=== PATIENT | female | born 1945 | race Caucasian/White ===

== ENCOUNTER 2022-12-05 12:13 | Inpatient (IN) | payer MEDICARE, OTHER ==
[~2022-12-05] VITALS: Ht 162.6 cm; Wt 63.5 kg
--- NOTE | 2022-12-05 13:13 | NUR ---
KIMBERLY (GRAND DAUGHTER) [phone]
--- NOTE | 2022-12-05 13:13 | NUR ---
LUZ, FAMILY CALLED 911 , PT C/O PAIN IN AB, CIRHOSIS OF LIVER NOTED, WAS NOT DRAINED IN DAYS HAD REFUSED TX, BLOATED, IN PAIN, APPEARS TO HAVE A GI BLEED DUE TO BRIGHT RED BLOOD FROM ANUS AT THIS TIME,
[2022-12-05 13:17] LABS: BASOPHILS # (AUTO) 0.2 K/uL (0.0-0.2); BASOPHILS % (AUTO) 1.9 % (0.0-2.0); EOSINOPHILS % (AUTO) 0.4 % (0.0-6.0); HEMATOCRIT 38 % (33-45); HEMOGLOBIN 11.9 g/dL (11.5-14.8); LYMPHOCYTES # (AUTO) 3.4 K/uL (0.8-4.8); LYMPHOCYTES % (AUTO) 29.3 % (20.0-44.0); MEAN CORPUSCULAR HGB CONC 32 g/dl (31.0-36.0); MEAN CORPUSCULAR VOLUME 82 fL (82-100); MONOCYTES # (AUTO) 0.5 K/uL (0.1-1.30); MONOCYTES % (AUTO) 4.2 % (2.0-12.0); NEUTROPHILS # (AUTO) 7.4 K/uL (1.8-8.9); NEUTROPHILS % (AUTO) 64.2 % (43.0-81.0); PLATELET COUNT (AUTO) 375 K/uL (150-450); WHITE BLOOD COUNT (AUTO) 11.5 K/uL (4.3-11.0)
[2022-12-05] MEDS ORDERED: IV NS 0.9% 1,000 ML BAG IV ONE ×2 (13:30→14:30)
[2022-12-05 13:32] LABS: SERUM AMMONIA 36 umol/L (11-32)
[2022-12-05 13:47] LABS: ALANINE AMINOTRANSFERASE 225 U/L (12-78); ALBUMIN 2.6 g/dL (3.4-5.0); ASPARTATE AMINOTRANSFERASE 580 U/L (15-37); BILIRUBIN,DIRECT 12.4 mg/dL (0.0-0.2); BILIRUBIN,TOTAL 15.3 mg/dL (0.2-1.0); CALCIUM, SERUM 9.5 mg/dL (8.5-10.1); CARBON DIOXIDE 19 mmol/L (21-32); CHLORIDE 92 mmol/L (98-107); CREATININE 2.6 mg/dL (0.6-1.3); GLUCOSE 102 mg/dL (74-106); LIPASE 259 U/L (73-393); SODIUM SERUM 127 mmol/L (136-145); TOTAL PROTEIN, SERUM 6.3 g/dL (6.4-8.2)
[2022-12-05 13:50] LABS: POTASSIUM 6.6 mmol/L (3.5-5.1); UREA NITROGEN, BLOOD 147 mg/dL (7-18)
[2022-12-05] MEDS ORDERED: ALBUTEROL FS 2.5 MG/3 ML VIAL.NEB NEB ONE (14:00)
[2022-12-05] MEDS ORDERED: DEXTROSE 50%-WATER 50 ML DISP.SYRIN IV ONE (14:00)
[2022-12-05] MEDS ORDERED: INSULIN REGULAR, HUMAN 100 UNIT/ML 10 ML VIAL IV ONE (14:00)
[2022-12-05] MEDS ORDERED: SODIUM BICARBONATE SYR 50 MEQ/50 ML DISP.SYRIN IV ONE (14:00)
[2022-12-05 14:08] LABS: ALKALINE PHOSPHATASE 2203 U/L (46-116)
[2022-12-05] MEDS ORDERED: SODIUM BICARBONATE SYR 50 MEQ/50 ML DISP.SYRIN ONE (14:13)
[2022-12-05] MEDS ORDERED: DEXTROSE 50%-WATER 50 ML DISP.SYRIN ONE (14:13)
--- NOTE | 2022-12-05 14:16 | NUR ---
PAGEAdeel HERNANDEZ FORMERLY [facility] FOR CONSULT PER DR. ROUSE REQUEST. DAVID ADVISED SHE WOULD COME SEE PT. NO ETA
[2022-12-05] MEDS ORDERED: INSULIN REGULAR, HUMAN 100 UNIT/ML 10 ML VIAL ONE (14:51)
[2022-12-05] MEDS ORDERED: LIDOCAINE 2% 20 ML MDV ONE (14:58)
[2022-12-05] MEDS ORDERED: ONDANSETRON HCL/PF 4 MG/2 ML VIAL IVP PRN (15:00)
[2022-12-05] MEDS ORDERED: MAG HYDROX/AL HYDROX/SIMETH 30 ML UDC PO PRN (15:00)
[2022-12-05] MEDS ORDERED: Z GUARD REMEDY 4 OZ OINT TP PRN (15:00)
[2022-12-05] MEDS ORDERED: ACETAMINOPHEN 325 MG TABLET PO PRN (15:00)
[2022-12-05] MEDS ORDERED: MAGNESIUM HYDROXIDE 30 ML UDC PO PRN (15:00)
[2022-12-05] MEDS ORDERED: MORPHINE SULFATE INJ 2 MG/ML DISP.SYRIN IV PRN (15:00)
[2022-12-05] MEDS ORDERED: IV NS 0.9% 1,000 ML IV PRN (15:00)
--- NOTE | 2022-12-05 15:05 | NUR ---
PT AND FAMILY DECIDED TO DECLINE THE PARACENTISIS AT THIS TIME AND IMPLEMENT COMFORT MEASURES ONLY AT THIS TIME, MD AGREED PROCEDURE CANCELLED AT THIS TIME. WILL CONTINUE WITH COMFORT CARE AND CARRY OUT ANY FURTHER ORDERS.
--- NOTE | 2022-12-05 15:15 | NUR ---
SW was notified of pt. consult, pt. will be admitted medically and SW will follow up at a later time.
--- NOTE | 2022-12-05 15:24 | NUR ---
room 324-2
--- NOTE | 2022-12-05 15:28 | NUR ---
search engine optimization specialist treated and cleansed both sites with NS and gauze, pt stable A&O x 4
--- NOTE | 2022-12-05 16:00 | NUR ---
Admission Note Received patient from ER via gurney. Patient is A/ox 2, Luxembourger speaking, verbal; not clear. Patient has no s/o of SOB, breathing evenly and unlabored. Vitals BP 153/88, WI 99, RR 18, Spo2 97% on room air. External monitor attached, reading SR w/ BBB, HR in the 90s. IV access on LAC G #20 intact and patent. Limited Skin Assessment done patient getting agitated. Refused photos. Patient back clean, dry and intact. Abdominal distension noted, all belonging accounted for. Patient is DNR/DNI, POLST in chart. Code Status ordered. Safety measure in place: bed in lowest position, locked position with SR up x3, call light with reach. Addendum: 12/05/22 at 1929 by MYESHA CASTRO LVN ADD: For comfort measures ONLY
[2022-12-05 17:48] VITALS: BP 153/88
--- NOTE | 2022-12-05 19:27 | NUR ---
Tele CIVIL CAD DESIGNER closing Note Patient remains stable, will endorse to shift commander nurse fro WAYLON.
--- NOTE | 2022-12-05 19:35 | NUR ---
COMMUNITY SERVICE OFFICER COORDINATOR OPENING NOTES RECEIVED PATIENT IN BED AWAKE. WITH FAMILY IN BED SIDE PATIENT IS A/OX1. IV SITE ON LEFT AC G#20 SALINE LOCK. NOTED TO BE PATENT AND INTACT, FLUSHING WELL. PATIENT ON TELE MONITOR WITH READING OF SINUS RHYTHM 96BPM WITH BBB. NO SOB NOTED. PATIENT SLIGHTLY AGITATED AND RESTLESS. SAFETY MEASURE IN PLACED; BED LOCKED AND IN LOWEST POSITION. SIDE RAILS UP X4, HOB ELEVATED, CALL LIGHT AND BEDSIDE TABLE WITHIN PATIENTS REACH.
--- NOTE | 2022-12-05 19:45 | NUR ---
RN NOTE PATIENT IS SAYING SHE IS IN PAIN IN GUYANESE. TRANSLATED BY GRANDDAUGHTER. DR THOMAS PRODUCT OPERATIONS ASSOCIATE MADE AWARE OF. NEW ORDER RECEIVED AND CARRIED OUT.
[2022-12-05 20:00] VITALS: BP 114/61
[2022-12-05] MEDS ORDERED: MORPHINE SULFATE 8 MG/ML VIAL IM/IV PRN (20:30)
[2022-12-05] MEDS: MORPHINE SULFATE INJ 2 MG/ML DISP.SYRIN IM/IV PRN (21:14)
--- NOTE | 2022-12-05 21:14 | NUR ---
RN NOTES MORPHINE IV IS GIVEN ACCORDING TO DR ORDER. WILL REASSESS.
[2022-12-05] MEDS ORDERED: CLONIDINE HCL 0.1 MG TABLET PO PRN (21:30)
--- NOTE | 2022-12-05 21:44 | NUR ---
RN NOTES REASSESSED PAIN OF PATIENT. PAIN MEDICATION MORPHINE IS EFFECTIVE. NO MORE SHOUTING AND GRASPING OF ABDOMINAL AREA NOTED
[2022-12-05] MEDS: LORAZEPAM INJ 2 MG/ML VIAL IV PRN (21:45)
--- NOTE | 2022-12-05 21:45 | NUR ---
RN NOTES PATIENT IS RESTLESS AND AGITATED. CHARGE NURSE HARVINDER MADE AWARE OF. QUALITY PROCESS LEAD DR THOMAS MADE AWARE OF. NEW ORDER RECEIVED AND CARRIED OUT. ATIVAN WAS GIVEN TO THE PATIENT. WILL REASSESS.
--- NOTE | 2022-12-05 22:15 | NUR ---
RN NOTE REASSESSED PATIENT AGITATION AND RESTLESSNESS. ATIVAN IS EFFECTIVE. PATIENT IS SLEEPING AND CALM. EASILY AWAKEN WITH SOFT TOUCH NOTED.
[2022-12-06] VITALS: BP 111/61
[2022-12-06 04:00] VITALS: BP 122/67
--- NOTE | 2022-12-06 06:44 | NUR ---
324-2 LEAD SQL DEVELOPER CLOSING NOTES PATIENT IN BED SLEEPING A/OX1. IV SITE ON LEFT AC G#20 SALINE LOCK. NOTED TO BE PATENT AND INTACT, FLUSHING WELL. IV ACCESS NO SIGNS OF INFECTION. PATIENT ON TELE MONITOR WITH READING OF SINUS RHYTHM 85BPM. NO SOB NOTED, NOT IN DISTRESS NOTED, NO RESTLESSNESS NOTED. COMFORT CARE IS PROVIDED. ALL MEDICATIONS ARE GIVEN ACCORDING TO DOCTORS ORDER. ALL NEEDS ARE MET. MADE SURE PATIENT IS COMFORTABLE, CLEAN AND DRY. HOURLY ROUNDS IS DONE THROUGHOUT THE SHIFT MAKING SURE ALL PATIENT NEEDS ARE MET. SAFETY MEASURE IN PLACED; BED LOCKED AND IN LOWEST POSITION. SIDE RAILS UP X4, HOB ELEVATED, CALL LIGHT AND BEDSIDE TABLE WITHIN PATIENTS REACH. WILL ENDORSE TO NEXT SHIFT NURSE FOR CONTINUITY OF CARE.
--- NOTE | 2022-12-06 07:58 | NUR ---
RN OPENING NOTE PATIENT AWAKE IN BED RESTING, A/O X 1. NO S/S OF PAIN NOTED AT THIS TIME. ON ROOM AIR, BREATHING EVEN UNLABORED, NO DISTRESS OR SHORTNESS OF BREATH NOTED. IV ACCESS LAC #20G, INTACT, PATENT AND FLUSHING WELL. PATIENT HAVE EXTERNAL SUPERVISOR COLOR PASTE MIXING WITH CURRENT READING OF SR AND HR OF 86, NO CARDIAC DISTRESS NOTES. FALL AND SAFETY MEASURES IN PLACE, BED ALARM ON, BED IN LOW AND LOCK POSITION, CALL LIGHT AND TABLE WITHIN EASY REACH, SIDE RAILS UP X2. WILL CONTINUE TO MONITOR.
[2022-12-06 08:00] VITALS: BP 109/58
[2022-12-06] MEDS ORDERED: PANTOPRAZOLE 40 MG VIAL IV SCH (09:00)
[2022-12-06 10:33] LABS: CALCIUM, SERUM 9.1 mg/dL (8.5-10.1); CARBON DIOXIDE 20 mmol/L (21-32); CHLORIDE 95 mmol/L (98-107); CREATININE 2.7 mg/dL (0.6-1.3); GLUCOSE 76 mg/dL (74-106); SODIUM SERUM 130 mmol/L (136-145)
[2022-12-06 10:39] LABS: POTASSIUM 6.4 mmol/L (3.5-5.1); UREA NITROGEN, BLOOD 151 mg/dL (7-18)
[2022-12-06 10:48] LABS: ALANINE AMINOTRANSFERASE 322 U/L (12-78); ALBUMIN 2.5 g/dL (3.4-5.0); ASPARTATE AMINOTRANSFERASE 1010 U/L (15-37); BILIRUBIN,TOTAL 15.3 mg/dL (0.2-1.0); TOTAL PROTEIN, SERUM 6.1 g/dL (6.4-8.2)
[2022-12-06 10:52] LABS: ALKALINE PHOSPHATASE 2474 U/L (46-116)
[2022-12-06] MEDS: MORPHINE SULFATE INJ 2 MG/ML DISP.SYRIN IM/IV PRN ×2 (12:21→19:53)
[2022-12-06 13:00] VITALS: BP 114/52
[2022-12-06] MEDS ORDERED: DEXTROSE 50%-WATER 50 ML DISP.SYRIN IVP ONE (14:30)
[2022-12-06] MEDS ORDERED: SODIUM POLYSTYRENE SULF. PWD 15 GM UDC PO ONE (14:30)
[2022-12-06] MEDS ORDERED: INSULIN REGULAR, HUMAN 100 UNIT/ML 10 ML VIAL IV ONE (14:30)
[2022-12-06] MEDS ORDERED: Calcium Gluconate 1GM/10ML 4.65 MEQ in IV NS 0.9% 100 ML IV ONE (14:30)
[2022-12-06] MEDS ORDERED: CLOB15OI3 TP (14:37)
[2022-12-06] MEDS ORDERED: METO25TA20 PO (14:37)
[2022-12-06] MEDS ORDERED: HYDR28.316 RC (14:37)
[2022-12-06] MEDS ORDERED: LACT10PA5 PO (14:37)
[2022-12-06] MEDS ORDERED: FURO40TA5 PO (14:37)
[2022-12-06] MEDS ORDERED: INSU100I19 SQ (14:37)
[2022-12-06] MEDS ORDERED: LIDO30AD10 TP (14:37)
[2022-12-06] MEDS ORDERED: PANT40TA49 PO (14:37)
[2022-12-06] MEDS ORDERED: CLOP75TA15 PO (14:37)
[2022-12-06] MEDS ORDERED: VALS80TA31 PO (14:37)
[2022-12-06] MEDS ORDERED: GLIP5TAB13 PO (14:37)
[2022-12-06] MEDS ORDERED: OMEG1CAP55 PO (14:37)
[2022-12-06] MEDS ORDERED: NAPR-1192 PO (14:37)
[2022-12-06] MEDS ORDERED: ASPI-1420 PO (14:37)
[2022-12-06] MEDS ORDERED: GABA-532 PO (14:37)
[2022-12-06 16:00] VITALS: BP 109/55
--- NOTE | 2022-12-06 17:34 | NUR ---
RN NOTES FAMILY REQUESTED FOR PT TO HAVE ZOFRAN ORDER PRN. ORDER WAS PLACED PER CHARGE NURSE APPROVAL- ZOFRAN 4 MG IV Q4H.
--- NOTE | 2022-12-06 17:37 | NUR ---
RN NOTES FAMILY REQUESTED FOR DOCTOR TO BE INFORMED THAT INCASE PARACENTESIS IS NEEDED, THEY WOULD LIKE PATIENT TO HAVE PARACENTESIS IF IT IS HELPFUL AND NECESSARY. CHARGE NURSE AWARE, WILL ENDORSE TO NEXT SHIFT.
[2022-12-06] MEDS ORDERED: ONDANSETRON HCL/PF 4 MG/2 ML VIAL IV PRN (18:00)
--- NOTE | 2022-12-06 19:30 | NUR ---
RN OPENING NOTE PATIENT AWAKE IN BED RESTING, A/O X 1. NO S/S OF PAIN NOTED AT THIS TIME. ON ROOM AIR, BREATHING EVEN UNLABORED, NO DISTRESS OR SHORTNESS OF BREATH NOTED. IV ACCESS LAC #20G, INTACT, PATENT AND FLUSHING WELL. PATIENT HAVE EXTERNAL TELEVISION NEWS ANCHOR WITH CURRENT READING OF SR AND HR OF 85, NO CARDIAC DISTRESS NOTES. FALL AND SAFETY MEASURES IN PLACE, BED ALARM ON, BED IN LOW AND LOCK POSITION, CALL LIGHT AND TABLE WITHIN EASY REACH, SIDE RAILS UP X2. ALL NEEDS ATTENDED AND ANTICIPATED. Addendum: 12/06/22 at 2033 by GERRI PIEDRA RN ERROR
[2022-12-06] MEDS: LORAZEPAM INJ 2 MG/ML VIAL IV PRN (19:54)
[2022-12-06 20:00] VITALS: BP 111/54
--- NOTE | 2022-12-06 20:00 | NUR ---
RN OPENING NOTE PATIENT AWAKE IN BED RESTING, A/O X 1. PT NOTED SCREAMING OUT FAMILY AT BEDSIDE PT APPEARD IN PAIN PER FAMILY MORPHINE REQUESTED WHEN RN WAS ABOUT TO PUSH MORPHINE FAMILY STATED " WAIT LET ME CALL MY DAUGHTER" PTS GRANDDAUGHTER WAS PLACED ON SPEAKER AND STATED " CAN YOU EXPLAIN WHAT MORPHINE IS USED FOR IS THERE A DIFFERENT MEDICATION YOU CAN GIVE HER THE LAST NURSE GAVE MORPHINE CAN YOU GIVE THE OTHER ONE". RN ASKED ARE YOU TALKING ABOUT TO THE ATIVAN ? " YES PLEASE GIVE HER THAT ONE INSTEAD PLEASE". MORPHINE DISCARDED IN MED ROOM WITNESSED BY WERNER DUMONT. ON ROOM AIR, BREATHING EVEN UNLABORED, NO DISTRESS OR SHORTNESS OF BREATH NOTED. IV ACCESS LAC #20G, INTACT, PATENT AND FLUSHING WELL. PATIENT HAVE EXTERNAL APPOINTMENT SCHEDULER WITH CURRENT READING OF SR AND HR OF 80S, NO CARDIAC DISTRESS NOTES. FALL AND SAFETY MEASURES IN PLACE, BED ALARM ON, BED IN LOW AND LOCK POSITION, CALL LIGHT AND TABLE WITHIN EASY REACH, SIDE RAILS UP X2. PT FAMILY REQUESTING TO SPEAK TO DOCTOR REGARDING HOSPICE VS PALLIATIVE CARE STATUS PHONE NUMBER OF GRANDDAUGHTER OBTAINED MARK . Addendum: 12/06/22 at 2034 by GERRI PIEDRA RN PER FAMILY REQUEST PT WAS CHANGED AT THIS TIME. NO RECTAL BLEEDING NOTED AT THIS TIME.
--- NOTE | 2022-12-06 20:08 | NUR ---
RN CLOSING NOTE PATIENT AWAKE IN BED RESTING, A/O X 1. NO S/S OF PAIN NOTED AT THIS TIME. ON ROOM AIR, BREATHING EVEN UNLABORED, NO DISTRESS OR SHORTNESS OF BREATH NOTED. IV ACCESS LAC #20G, INTACT, PATENT AND FLUSHING WELL. PATIENT HAVE EXTERNAL HOTEL OR MOTEL RECEPTIONIST WITH CURRENT READING OF SR AND HR OF 85, NO CARDIAC DISTRESS NOTES. FALL AND SAFETY MEASURES IN PLACE, BED ALARM ON, BED IN LOW AND LOCK POSITION, CALL LIGHT AND TABLE WITHIN EASY REACH, SIDE RAILS UP X2. PATIENT WAS TURNED AND REPOSITIONED PER PROTOCOL. SCHEDULED MEDICATIONS GIVEN. ALL NEEDS ATTENDED AND ANTICIPATED. WILL ENDORSE TO CAR LOT ATTENDANT NURSE.
[2022-12-07] VITALS (7 sets, daily range): BP systolic 97–122; BP diastolic 51–58
--- NOTE | 2022-12-07 06:37 | NUR ---
RN CLOSING NOTE PATIENT AWAKE IN BED RESTING, A/O X 1. ON ROOM AIR, ASLEEP BREATHING EVEN UNLABORED, NO DISTRESS OR SHORTNESS OF BREATH NOTED. IV ACCESS LAC #20G, INTACT, PATENT AND FLUSHING WELL. PATIENT HAS EXTERNAL COAL TRIMMER WITH CURRENT READING OF SR AND HR OF 90S, NO CARDIAC DISTRESS NOTES. FALL AND SAFETY MEASURES IN PLACE, BED ALARM ON, BED IN LOW AND LOCK POSITION, CALL LIGHT AND TABLE WITHIN EASY REACH, SIDE RAILS UP X2. KEPT CLEAN AND DRY AT ALL TIMES REPOSITIONED Q2HRS AND PRN FOR COMFORT. NO NOTED RECTAL BLEEDING DURING SHIFT.WILL ENDORSE CARE TO DAY SHIFT NURSE.
--- NOTE | 2022-12-07 07:30 | NUR ---
EXAMINER RATING CLERK OPENING NOTE RECEIVED PATIENT RESTING IN BED. A/OX1. NO COMPLAINTS MADE. NO S/S OF DISTRESS, BREATHING WITHOUT DIFFICULTY ON ROOM AIR. IV ACCESS LAC #20 SL INTACT AND PATENT. ON TELE MONITORING, SR 90s. SKIN INTACT, ON FULL LIQUID DIET. SAFETY MEASURES IN PLACE: BED LOCKED AND AT LOWEST POSITION, SEMI-FOWLERS POSITION, SIDE RAILS UP X2, CALL LIGHT WITHIN REACH. REPOSITIONING EVERY 2 HRS AND PRN COMFORT. WILL CONTINUE TO MONITOR PATIENT.
[2022-12-07] MEDS: MORPHINE SULFATE INJ 2 MG/ML DISP.SYRIN IM/IV PRN (08:09)
--- NOTE | 2022-12-07 09:00 | NUR ---
DRAW FRAME TENDER NOTES PT IN BED, ASLEEP, EASY TO AROUSE, NO SIGN OF PAIN OR DISTRESS, SEEN BY DR. MCBRIDE, PLAN FOR HOSPICE EVAL TODAY.
[2022-12-07 12:10] LABS: CALCIUM, SERUM 9.1 mg/dL (8.5-10.1); CARBON DIOXIDE 19 mmol/L (21-32); CHLORIDE 95 mmol/L (98-107); CREATININE 3.4 mg/dL (0.6-1.3); GLUCOSE 110 mg/dL (74-106); SODIUM SERUM 131 mmol/L (136-145)
[2022-12-07 12:27] LABS: POTASSIUM 6.7 mmol/L (3.5-5.1); UREA NITROGEN, BLOOD 163 mg/dL (7-18)
[2022-12-07] MEDS ORDERED: INSULIN REGULAR, HUMAN 100 UNIT/ML 3 ML VIAL SQ ONE (15:30)
[2022-12-07] MEDS ORDERED: DEXTROSE 50%-WATER 50 ML DISP.SYRIN IVP ONE (15:30)
--- NOTE | 2022-12-07 19:00 | NUR ---
FUR SEWER NOTES PT IN BED, RESTING, NO SIGN OF PAIN OR DISTRESS, RESPIRATIONS NORMAL, FAMILY AT BEDSIDE, SEEN BY DR. MCBRIDE TODAY, ALSO SEEN BY CRYPTOLOGIC SUPERVISOR CARLOS, DISCHARGE PLANNING DISCUSSED WITH FAMILY MEMBERS, PM CARE PROVIDED.
--- NOTE | 2022-12-07 19:32 | NUR ---
MUFFLER MECHANIC NOTES PT IN BED, ASLEEP, NO SIGN OF PAIN OR DISTRESS NO USE OF ACCESSORY MUSCLES NO GRIMACE NOTED IN NO PAIN AT THIS TIME. PT FAMILY AT BEDSIDE.
[2022-12-07] MEDS: LORAZEPAM INJ 2 MG/ML VIAL IV PRN (22:56)
--- NOTE | 2022-12-07 22:56 | NUR ---
RN NOTE PT NOTED WITH AGITATION PRN ATIVAN GIVEN.
[2022-12-08] VITALS (8 sets, daily range): BP systolic 98–116; BP diastolic 46–59
--- NOTE | 2022-12-08 06:39 | NUR ---
RN CLOSING NOTE PATIENT AWAKE IN BED RESTING, A/O X 0. ON ROOM AIR, ASLEEP BREATHING EVEN UNLABORED, NO DISTRESS OR SHORTNESS OF BREATH NOTED. IV ACCESS LAC #20G, INTACT, PATENT AND FLUSHING WELL. PATIENT HAS EXTERNAL STRUCTURAL STEEL WORKER WITH CURRENT READING OF SR AND HR OF 80S, NO CARDIAC DISTRESS NOTES. FALL AND SAFETY MEASURES IN PLACE, BED ALARM ON, BED IN LOW AND LOCK POSITION, CALL LIGHT AND TABLE WITHIN EASY REACH, SIDE RAILS UP X2. KEPT CLEAN AND DRY AT ALL TIMES REPOSITIONED Q2HRS AND PRN FOR COMFORT. .WILL ENDORSE CARE TO DAY SHIFT NURSE.
--- NOTE | 2022-12-08 07:07 | NUR ---
BINDERY MACHINE TENDER OPENING NOTES RECEIVED PATIENT RESTING IN BED, A/Ox0, RESPONDS TO VERBAL AND TACTILE STIMULI. ON ROOM AIR, NO S/S OF RESPIRATORY DISTRESS. ON TELE MONITORING SHOWING SINUS RHYTHM HR 84. NO S/S OF CHEST PAIN OR DISCOMFORT. IV ACCESS L AC #20 S/L. INTACT AND PATENT. PATIENT INCONTINENT. BED BOUND. SKIN ISSUES: SACRAL REDNESS. NO S/S OF PAIN OR DISCOMFORT. ON COMFORT MEASURES, PATIENT RESTING WELL. SAFETY MEASURES IN PLACE: BED LOCKED AND IN LOWEST POSITION, HOB ELEVATED, CALL LIGHT WITHIN REACH, SIDE RAILS UPx2. WILL CONTINUE TO MONITOR.
--- NOTE | 2022-12-08 13:15 | NUR ---
RN NOTES TELE MONITORING D/C, REMOVED TELE BOX. PATIENT RESTING WELL IN BED, NO S/S OF PAIN OR DISCOMFORT. FAMILY BY BEDSIDE. WILL CONTINUE TO MONITOR.
[2022-12-08] MEDS ORDERED: SODIUM POLYSTYRENE SULFONATE 15 G/60 ML BOTTLE PO SCH (17:14)
--- NOTE | 2022-12-08 18:41 | NUR ---
MS RN CLOSING NOTES PATIENT RESTING IN BED, A/Ox0, RESPONDS TO VERBAL AND TACTILE STIMULI. STABLE ON ROOM AIR, NO S/S OF RESPIRATORY DISTRESS. FAMILY AT BEDSIDE. IV ACCESS L AC #20 S/L. INTACT AND PATENT. PATIENT INCONTINENT. BED BOUND. SKIN ISSUES: SACRAL REDNESS. NO S/S OF PAIN OR DISCOMFORT. ON COMFORT MEASURES, PATIENT RESTING WELL. SAFETY MEASURES MAINTAINED: BED LOCKED AND IN LOWEST POSITION, HOB ELEVATED, CALL LIGHT WITHIN REACH, SIDE RAILS UPx2. WILL ENDORSE TO NEXT SHIFT ANY WAYLON.
--- NOTE | 2022-12-08 20:00 | NUR ---
MS RN OPENING NOTE PATIENT SLEEPING IN BED WITH FAMILY AT BEDSIDE, PT A/O X 0. PATIENT STABLE ON RA, NO S/S OF DISTRESS OR SOB NOTED, BREATHING EVEN AND UNLABORED. IV ACCESS ON LAC #20G INTACT AND SALINE LOCKED. FAMILY REQUEST TO SPEAK TO AFFILIATE MARKETING MANAGER AND WANT PATIENT TO BE PLACED ON TELE FOR MONITORING. SAFETY MEASURES IN PLACE: CALL LIGHT WITHIN REACH, SIDE RAILS UP X 3, HOB ELEVATED, BED LOCKED IN LOWEST POSITION, BED ALARM ON. WILL CONTINUE TO MONITOR PATIENT
--- NOTE | 2022-12-08 20:30 | NUR ---
MS RN NOTE FAMILY SPOKE TO DIRECTOR OF STRATEGIC MARKETING BRIAN, PATIENT PLACED ON TELE FOR MONITORING, HYGIENE CARE AND REPOSITIONED PERFORMED WITH AMERICAN HISTORY TEACHER. WILL CONTINUE TO MONITOR
--- NOTE | 2022-12-08 22:16 | NUR ---
MS RN NOTE PER RACHELL RN, FAMILY STATED THEY WOULD GIVE KAYEXELATE WHEN PATIENT WOKE UP, HOWEVER FAMILY UNABLE TO GIVE PATIENT KAYAXELATE BECAUSE PATIENT IS TOO LETHARGIC AND SLEEPING Addendum: 12/09/22 at 0011 by LUZ HOWARD RN FAMILY WAS ACTUALLY ABLE TO GIVE PATIENT 40 ML OUT OF 60 ML OF KAYEXALATE TO PATIENT
[2022-12-09 00:58] VITALS: BP 113/57
[2022-12-09 04:15] VITALS: BP 110/60
--- NOTE | 2022-12-09 07:00 | NUR ---
MS RN CLOSING NOTE PATIENT SLEEPING IN BED, PT A/O X 0, PT SLEPT ALL NIGHT. PATIENT STABLE ON RA, PATIENT'S BREATHING MORE LABORED AND SOUNDS CRACKLY, ATTEMPTED TO SUCTION BUT NO OUTPUT NOTED, SPO2 REMAINED > 95% ALL SHIFT, ORAL CARE PERFORMED. IV ACCESS ON LAC #20G INTACT AND SALINE LOCKED. PATIENT PLACED ON TELE MONITORING PER FAMILY REQUEST, READING SINUS RHYTHM WITH BBB AND 1ST DEGREE BLOCK, HR IN 90'S TO LOW 100'S. PATIENT NEEDS MET THROUGHOUT SHIFT, PATIENT TURNED AND REPOSITIONED, PT HAD ONE BOWEL MOVEMENT THIS SHIFT. SAFETY MEASURES IN PLACE: CALL LIGHT WITHIN REACH, SIDE RAILS UP X 3, HOB ELEVATED, BED LOCKED IN LOWEST POSITION, BED ALARM ON. WILL ENDORSE TO DAYSHIFT RN FOR CONTINUITY OF CARE
--- NOTE | 2022-12-09 07:08 | NUR ---
MS RN OPENING NOTES RECEIVED PATIENT RESTING IN BED, A/Ox0, RESPONDS TO VERBAL AND TACTILE STIMULI. ON ROOM AIR, NO S/S OF RESPIRATORY DISTRESS. IV ACCESS L AC #20 S/L. INTACT AND PATENT. PATIENT INCONTINENT. BED BOUND. SKIN ISSUES: SACRAL REDNESS. NO S/S OF PAIN OR DISCOMFORT. ON COMFORT MEASURES, PATIENT RESTING WELL. SAFETY MEASURES IN PLACE: BED LOCKED AND IN LOWEST POSITION, HOB ELEVATED, CALL LIGHT WITHIN REACH, SIDE RAILS UPx2. WILL CONTINUE TO MONITOR.
[2022-12-09 08:00] VITALS: BP 90/40
--- NOTE | 2022-12-09 08:05 | NUR ---
RN NOTES PATIENT NOTED WITH MOUTH BREATHING, ATTACHED TO 3L OF O2 VIA NC. STILL SATING 95%, 96%. WILL CONTINUE TO MONITOR.
--- NOTE | 2022-12-09 09:05 | NUR ---
RN NOTES CARE PROVIDED TO PATIENT. NOTED AFTER CARE THAT BREATHING HAD DECLINED. CALLED GRANDDAUGHTER TATIANA TO INFORM FAMILY THAT PATIENT IS DECLINING. WILL CONTINUE TO MONITOR.
--- NOTE | 2022-12-09 09:10 | NUR ---
RN NOTES WERNER LEVIN AND WERNER ATKINOSN COULD NO LONGER FEEL PULSE OR HEAR HEARTBEAT. PRONOUNCED ON 12/09/22 @0985.
--- NOTE | 2022-12-09 09:36 | NUR ---
RN NOTES GRANDDAUGHTER ARRIVED, GIVEN PRIVACY WILL ATTEND TO NEEDS NEEDED.
--- NOTE | 2022-12-09 09:46 | NUR ---
RN NOTES [facility] CALLED, SPOKE TO DENISSE, REFERENCE #[id number]
--- NOTE | 2022-12-09 10:00 | NUR ---
RN NOTES PATIENT FAMILY NOTIFIED RN THAT THEY ARE READY AND POST-MORTEM CARE CAN BE DONE.
--- NOTE | 2022-12-09 10:10 | NUR ---
RN NOTES BELONGINGS, SHIRT, GIVEN TO GRANDDAUGHTER
--- NOTE | 2022-12-09 10:45 | NUR ---
RN NOTES SECURITY ARRIVED TO ULTIMATE HOOPS SCOREBOARD OPERATOR THE BODY.
--- NOTE | 2022-12-09 11:00 | NUR ---
TUNNELLER NOTES PATIENT ADMITTED 12/05/22 FOR HYPERKALEMIA. PATIENT TREATED, CODE STATUS DNR/DNI, COMFORT MEASURES. PATIENT NEEDS ATTENDED TO, TREATED FOR HYPERKALEMIA, AND KEPT COMFORTABLE. RECEIVED PATIENT ON ROOM AIR NO S/SO OF RESPIRATORY DISTRESS, BUT NOTED SOME SHALLOW BREATHING AND O2 THERAPY WAS PROVIDED FOR COMFORT. NO S/S OF DISTRESS OR ANXIETY. PATIENT CARE WAS PROVIDED WHEN BREATHING DECLINED, GRANDDAUGHTER NOTIFIED IMMEDIATELY. PATIENT 0910 AND 0936 FAMILY ARRIVED AT BEDSIDE. [facility] NOTIFIED. PRIVACY PROVIDED AND POST MORTEM CARE WAS PROVIDED ONCE FAMILY WAS READY. BELONGINGS GIVEN TO GRANDDAUGHTER. SECURITY ARRIVED AND TOOK PATIENT'S BODY @1045. CHARGE NURSE AND MD AWARE.
== END 2022-12-09 09:10 | DRG 441 ==
LOC: ER 12:56 → TELE 15:40 → MED 12-08 13:18
PROVIDERS: ADMIT Internal Medicine; ATTEND Internal Medicine
DX: K76.82 Hepatic encephalopathy (principal); E43 Unspecified severe protein-calorie malnutrition; K76.7 Hepatorenal syndrome; N17.0 Acute kidney failure with tubular necrosis; K62.5 Hemorrhage of anus and rectum; E87.1 Hypo-osmolality and hyponatremia; R18.8 Other ascites; D68.9 Coagulation defect, unspecified; E87.20 Acidosis, unspecified; J98.11 Atelectasis; K74.60 Unspecified cirrhosis of liver; E87.5 Hyperkalemia; Z85.05 Personal history of malignant neoplasm of liver; Z66 Do not resuscitate; Z51.5 Encounter for palliative care; D72.829 Elevated white blood cell count, unspecified; E11.22 Type 2 diabetes mellitus with diabetic chronic kidney disease; E88.09 Other disorders of plasma-protein metabolism, not elsewhere classified; I12.9 Hypertensive chronic kidney disease with stage 1 through stage 4 chronic kidney disease, or unspecified chronic kidney disease; N18.9 Chronic kidney disease, unspecified
CPT/HCPCS: 36415; 71045-TC; 76770-TC; 80048-TC; 80053-TC; 80076-TC; 82140-TC; 82962-TC; 83605-TC; 83690-TC; 84484-TC; 85025-TC; 85730-TC; 87040-TC; 87081-TC; A4223; G0378; J0610; J1815; J2060; J2270; J3490; J7030; J7050